=== PATIENT | male | born 1990 | race Caucasian/White ===

== ENCOUNTER 2016-11-07 20:43 | Emergency (ER) | payer SELFPAY ==
[~2016-11-07] VITALS: Ht 180.3 cm; Wt 75.0 kg
[2016-11-07 20:45] VITALS: TEMP 37.1; Ht 180.3 cm; Wt 75.0 kg
[2016-11-07] MEDS ORDERED: MoRPHine SULFATE 10 MG/ML CARP/VIAL IV STA (21:11)
[2016-11-07] MEDS ORDERED: ONDANSETRON 8 MG/54 ML D5W IV STA (21:11)
[2016-11-07] MEDS ORDERED: OPTIRAY 320 IV PRN (21:15)
[2016-11-07] MEDS ORDERED: MoRPHine SULFATE 2 MG/ML CARP ONE (21:16)
[2016-11-07] MEDS ORDERED: MoRPHine SULFATE 4 MG/ML 1 ML CARP\\VIAL ONE (21:16)
[2016-11-07 21:23] LABS: HEMATOCRIT 38.3 % (42-52); MEAN CELL VOLUME 88.2 fL (80-100); MEAN CORPUSCULAR HEMOGLOBIN 30.9 pg (25-34); PLATELET COUNT 314 K/uL (130-400); RED BLOOD COUNT 4.34 M/uL (4.7-6.1); WHITE BLOOD COUNT 19.16 K/uL (4.8-10.8)
--- NOTE | 2016-11-07 21:39 | EMERGENCY ROOM VISIT NOTE ---
History First contact with patient: 20:55 Chief Complaint: FALL Stated Complaint: BACK PAIN History of Present Illness The patient is a 26 year old male who presents to the Emergency Room with complains of a fall 3 hours ago. The patient was trying to climb up the deck of his house when he fell approximately 10+ feet to the ground and possibly falling over a rock. The patient denies any head trauma or loss of counciousness and states the brunt of the force was to his back and hip on the right side. The patient says he is currently having pain with movement of his right shoulder and right leg. He complains it is worse over his right shoulder blade and right hip. He denies any shortness of breath, vision changes, abdominal pain, headache, changes in vision, loss of sensation, loss of movement , or any other acute complaints. Review of Systems See HPI for pertinent positives and negatives. A total of ten systems were reviewed and were otherwise negative. Past Medical/Surgical History Medical Problems: (1) No chronic problems Social History Smoking Status: Current Every Day Smoker Current/Historical Medications Scheduled PRN Oxycodone/Acetaminophen 5MG/325MG (Percocet 5MG/325MG), 1 TAB PO Q6H PRN for Pain Allergies Coded Allergies: Milk (Verified Adverse Reaction, Mild, diarrhea, 07/13/15) Physical Exam Vital Signs Date Time Temp Pulse Resp B/P (MAP) Pulse Ox O2 Delivery O2 Flow Rate FiO2 11/07/16 23:46 75 20 122/58 98 Room Air 11/07/16 22:08 78 20 118/68 98 11/07/16 21:30 84 20 116/75 98 11/07/16 20:59 92 11/07/16 20:45 37.1 92 20 129/78 100 Room Air Physical Exam GENERAL: Awake, alert, in moderate distress HENT: Normocephalic, atraumatic. EYES: Normal conjunctiva. Sclera non-icteric. NECK: Supple. No nuchal rigidity. RESPIRATORY: Clear to auscultation. CARDIAC: Regular rate, normal rhythm. Extremities warm and well perfused. Pulses equal. ABDOMEN: Soft, non-distended. No tenderness to palpation. RECTAL: Deferred. MUSCULOSKELETAL: Tenderness to palpation over right scapula. Patient unable to abduct right arm beyond 90 degrees without tenderness. Also pain with adduction of the right arm lower than 90 degrees. Sensation over right arm and hand intact. Ulnar, Radial, and Median nerves of the right arm in tact. Pain over the right groin region and tenderness with palpation of the right hip over the anterior and posterior aspects. Tenderness with movement of the right hip and right leg. Weakness with flexion of the right hip. 5/5 Plantar flexion. Sensation over the right lower extremity intact. LOWER EXTREMITIES: Calves are equal size bilaterally and non-tender. No edema. No discoloration. NEURO: Normal sensorium. No sensory deficits noticed. SKIN: Abrasion over right scapula Medical Decision & Procedures Laboratory Results 11/07/16 21:06 Red Blood Count 4.34, Mean Corpuscular Volume 88.2, Mean Corpuscular Hemoglobin 30.9, Mean Corpuscular Hemoglobin Concent 35.0, Mean Platelet Volume 9.0, Neutrophils (%) (Auto) 75.3, Lymphocytes (%) (Auto) 15.4, Monocytes (%) (Auto) 8.1, Eosinophils (%) (Auto) 0.5, Basophils (%) (Auto) 0.2, Neutrophils # (Auto) 14.43, Lymphocytes # (Auto) 2.95, Monocytes # (Auto) 1.55, Eosinophils # (Auto) 0.09, Basophils # (Auto) 0.04 11/07/16 21:06 Test 11/07/16 21:06 White Blood Count 19.16 K/uL (4.8-10.8) Red Blood Count 4.34 M/uL (4.7-6.1) Hemoglobin 13.4 g/dL (14.0-18.0) Hematocrit 38.3 % (42-52) Mean Corpuscular Volume 88.2 fL (80-100) Mean Corpuscular Hemoglobin 30.9 pg (25-34) Mean Corpuscular Hemoglobin Concent 35.0 g/dl (32-36) Platelet Count 314 K/uL (130-400) Mean Platelet Volume 9.0 fL (7.4-10.4) Neutrophils (%) (Auto) 75.3 % Lymphocytes (%) (Auto) 15.4 % Monocytes (%) (Auto) 8.1 % Eosinophils (%) (Auto) 0.5 % Basophils (%) (Auto) 0.2 % Neutrophils # (Auto) 14.43 K/uL (1.4-6.5) Lymphocytes # (Auto) 2.95 K/uL (1.2-3.4) Monocytes # (Auto) 1.55 K/uL (0.11-0.59) Eosinophils # (Auto) 0.09 K/uL (0-0.5) Basophils # (Auto) 0.04 K/uL (0-0.2) RDW Standard Deviation 40.5 fL (36.4-46.3) RDW Coefficient of Variation 12.5 % (11.5-14.5) Immature Granulocyte % (Auto) 0.5 % Immature Granulocyte # (Auto) 0.10 K/uL (0.00-0.02) Anion Gap 9.0 mmol/L (3-11) Est Creatinine Clear Calc Drug Dose 116.7 ml/min Estimated GFR () 118.2 Estimated GFR (Non- 102.0 BUN/Creatinine Ratio 12.2 (10-20) Calcium Level 8.9 mg/dl (8.5-10.1) Chemistry Specimen Hemolysis Medications Administered Medications (Trade) Dose Ordered Sig/Emmanuelle Route Start Time Stop Time Status Last Admin Dose Admin Ondansetron HCl (Zofran 8mg Iv) 8 mg NOW STAT IV 11/07/16 21:11 11/07/16 21:13 DC 11/07/16 21:23 8 MG Morphine Sulfate (MoRPHine SULFATE INJ) 2 mg STK-MED ONCE .ROUTE 11/07/16 21:16 11/07/16 21:17 DC 11/07/16 21:23 2 MG Morphine Sulfate (MoRPHine SULFATE INJ) 4 mg STK-MED ONCE .ROUTE 11/07/16 21:16 11/07/16 21:17 DC 11/07/16 21:23 4 MG Oxycodone/ Acetaminophen (Percocet 5/ 325MG Home Pack) 1 homepack UD ONCE PO 11/08/16 00:00 11/08/16 00:01 DC 11/07/16 23:50 1 HOMEPACK Medical Decision Patient is a 26 year old male that presents 3 hours s/p fall - Patient appears to have injured his right scapula and right hip after fall - Patient denies any head trauma but due to the extent of the fall we will further investigate - CT Head, CT Chest, CT Abdomen and Pelvis - 8mg Morphine IV ordered Impression Primary Impression: Fall Additional Impression: Contusion of multiple sites After examining the patient, I placed orders and presented the patient to Dr. Tellez. I was then dismissed at the end of my shift. Departure Information Prescriptions Oxycodone/Acetaminophen 5MG/325MG (PERCOCET 5MG/325MG) Tab 1 TAB PO Q6H Y for Pain, #20 TAB Prov: Gary Tellez D.O. 11/07/16 Referrals No Doctor, Assigned (PCP) Patient Instructions My [facility] Problem Qualifiers Primary Impression: Fall Encounter type: initial encounter Qualified Codes: W19.XXXA - Unspecified fall, initial encounter
[2016-11-07 21:47] LABS: BUN/CREATININE RATIO 12.2 (10-20); CALCIUM 8.9 mg/dl (8.5-10.1); POTASSIUM 3.7 mmol/L (3.5-5.1)
[2016-11-07 22:10] LABS: BASO % 0.2 %; BASO ABS # 0.04 K/uL (0-0.2); COMPLETE YES; EOS % 0.5 %; IG% 0.5 %; LYMPH % 15.4 %; LYMPH ABS # 2.95 K/uL (1.2-3.4); MONO % 8.1 %; NEUT % 75.3 %
--- NOTE | 2016-11-07 22:10 | DIAGNOSTIC IMAGING REPORT ---
CT OF THE HEAD WITHOUT CONTRAST CLINICAL HISTORY: Fall. COMPARISON STUDY: No previous studies for comparison. CT DOSE: 1439.70 mGy.cm TECHNIQUE: Helical axial images of the head were obtained without IV contrast. Automated exposure control was utilized for the study. FINDINGS: No acute intracranial hemorrhage, midline shift or mass effect is present. The ventricular system is normal. The basilar cisterns are patent. There are no extra-axial collections. Stock-white differentiation is maintained. There is no calvarial fracture. Visualized portions of the sinuses and mastoid air cells are clear. IMPRESSION: 1. No acute intracranial findings. 2. No calvarial fracture. Electronically signed by: Marciano Newton M.D. 11/07/2016 10:09 PM Dictated Date/Time: 11/07/2016 10:06 PM
--- NOTE | 2016-11-07 22:25 | DIAGNOSTIC IMAGING REPORT ---
CT OF THE CHEST WITH IV CONTRAST CLINICAL HISTORY: Fall. Back pain. COMPARISON STUDY: No previous studies for comparison. TECHNIQUE: Following IV administration of 116 mL of Optiray-320, helical axial images of the chest were obtained. Sagittal and coronal reconstructions were viewed as well as maximal intensity projections on an independent 3-D workstation FINDINGS: There is no evidence of traumatic injury to the thoracic aorta. The size of the heart is normal. There is no pericardial effusion. There is no mediastinal hematoma. Central airways are patent. There are mild groundglass opacities within the superior segment of the right lower lobe. There is a trace right pneumothorax. Note is made of minimal gas tracking along the bronchovascular bundle within the right lower lobe. No acute rib fractures are identified. Note is made of an acute fracture of the inferior endplate of T3 with slight loss of vertebral body height. There is no retropulsion. No extension into the posterior elements is noted. There is no sternal fracture. Abdomen and pelvis will be reported separately. IMPRESSION: 1. Acute mild compression fracture of the inferior endplate of T3. Mild loss of vertebral body height without retropulsion. 2. Trace right pneumothorax. No acute rib fractures identified. 3. Mild multifocal groundglass opacities within the right lung which favor pulmonary contusions. Minimal gas tracking along a right lower lobe bronchovascular bundle could reflect a small pulmonary laceration. Electronically signed by: Marciano Newton M.D. 11/07/2016 10:23 PM Dictated Date/Time: 11/07/2016 10:09 PM
--- NOTE | 2016-11-07 22:33 | DIAGNOSTIC IMAGING REPORT ---
CT OF THE ABDOMEN AND PELVIS WITH CONTRAST CLINICAL HISTORY: Fall. Back pain. COMPARISON STUDY: None. TECHNIQUE: Following IV administration of 116 mL of Optiray-320, axial images of the abdomen and pelvis were obtained from the lung bases to the proximal femurs. Images were reviewed in the axial, sagittal, and coronal planes. IV contrast was administered without complication. FINDINGS: There is no hemoperitoneum or pneumoperitoneum. There is no evidence of traumatic injury to the liver, spleen, adrenal glands, kidneys or pancreas. Caliber and wall thickness of small and large bowel are normal. There is no acute pelvic fracture. There is a suspected acute nondisplaced fracture of the right transverse process of L2 shown on axial image 174 of 496. A trace right pneumothorax is better depicted on the chest CT. IMPRESSION: 1. No evidence of traumatic injury to the solid abdominal viscera. 2. Trace right pneumothorax better depicted on the chest CT. 3. Suspected acute nondisplaced fracture of the right transverse process of L2. Electronically signed by: Marciano Newton M.D. 11/07/2016 10:31 PM Dictated Date/Time: 11/07/2016 10:25 PM
[2016-11-07] MEDS ORDERED: OXYC-57 PO (23:12)
--- NOTE | 2016-11-07 23:14 | EMERGENCY ROOM VISIT NOTE ---
History Report prepared by Juan Francisco: Analia Hoffman Under the Supervision of: Dr. Gary Tellez D.O. First contact with patient: 20:55 Chief Complaint: FALL Stated Complaint: BACK PAIN History of Present Illness The patient is a 26 year old male who presents to the Emergency Room with complaints of an episode of a fall beginning just [employer]. The patient states that he fell off of a second story deck onto the ground on a rock. He complains of rib pain that is worsened with breath, hip pain, right lower shoulder blade pain , and pain radiating to the pelvis. He denies any numbness, tingling, head trauma, and loss of consciousness. The patient's brother states that the patient has no mental changes. 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 He denies any tingling, head trauma. Review of Systems See HPI for pertinent positives & negatives. A total of 10 systems reviewed and were otherwise negative. Past Medical & Surgical Medical Problems: (1) No chronic problems Family History No pertinent family history stated. Social History Smoking Status: Current Every Day Smoker Marital Status: single Occupation Status: employed Current/Historical Medications Scheduled PRN Oxycodone/Acetaminophen 5MG/325MG (Percocet 5MG/325MG), 1 TAB PO Q6H PRN for Pain Allergies Coded Allergies: Milk (Verified Adverse Reaction, Mild, diarrhea, 07/13/15) Physical Exam Vital Signs Date Time Temp Pulse Resp B/P (MAP) Pulse Ox O2 Delivery O2 Flow Rate FiO2 11/07/16 23:46 75 20 122/58 98 Room Air 11/07/16 22:08 78 20 118/68 98 11/07/16 21:30 84 20 116/75 98 11/07/16 20:59 92 11/07/16 20:45 37.1 92 20 129/78 100 Room Air Physical Exam CONSTITUTIONAL/VITAL SIGNS: Reviewed / noted above. GENERAL: Non-toxic in appearance. INTEGUMENTARY: Warm, dry, and [place]. HEAD: Normocephalic. EYES: without scleral icterus or trauma. ENT/OROPHARYNX: clear and moist. LYMPHADENOPATHY/NECK: Is supple without lymphadenopathy or meningismus. RESPIRATORY: Lungs clear and equal. CARDIOVASCULAR: Regular rate and rhythm. GI/ABDOMEN: Soft and nontender. No organomegaly or pulsatile mass. No rebound or guarding. Normal bowel sounds. EXTREMITIES: Warm and well perfused. BACK: mild discomfort with palpation of the lumbar region as well as the upper thoracic area NEUROLOGICAL: Intact without focal deficits. PSYCHIATRIC: normal affect. MUSCULOSKELETAL: Normally developed with good muscle tone. Medical Decision & Procedures ER Provider Diagnostic Interpretation: Radiology results as stated below per my review and radiologist interpretation: CT OF THE ABDOMEN AND PELVIS WITH CONTRAST FINDINGS: There is no hemoperitoneum or pneumoperitoneum. There is no evidence of traumatic injury to the liver, spleen, adrenal glands, kidneys or pancreas. Caliber and wall thickness of small and large bowel are normal. There is no acute pelvic fracture. There is a suspected acute nondisplaced fracture of the right transverse process of L2 shown on axial image 174 of 496. A trace right pneumothorax is better depicted on the chest CT. IMPRESSION: 1. No evidence of traumatic injury to the solid abdominal viscera. 2. Trace right pneumothorax better depicted on the chest CT. 3. Suspected acute nondisplaced fracture of the right transverse process of L2. Electronically signed by: Marciano Newton M.D. 11/07/2016 10:31 PM Dictated Date/Time: 11/07/2016 10:[address] OF THE CHEST WITH IV CONTRAST FINDINGS: There is no evidence of traumatic injury to the thoracic aorta. The size of the heart is normal. There is no pericardial effusion. There is no mediastinal hematoma. Central airways are patent. There are mild groundglass opacities within the superior segment of the right lower lobe. There is a trace right pneumothorax. Note is made of minimal gas tracking along the bronchovascular bundle within the right lower lobe. No acute rib fractures are identified. Note is made of an acute fracture of the inferior endplate of T3 with slight loss of vertebral body height. There is no retropulsion. No extension into the posterior elements is noted. There is no sternal fracture. Abdomen and pelvis will be reported separately. IMPRESSION: 1. Acute mild compression fracture of the inferior endplate of T3. Mild loss of vertebral body height without retropulsion. 2. Trace right pneumothorax. No acute rib fractures identified. 3. Mild multifocal groundglass opacities within the right lung which favor pulmonary contusions. Minimal gas tracking along a right lower lobe bronchovascular bundle could reflect a small pulmonary laceration. Electronically signed by: Marciano Newton M.D. 11/07/2016 10:23 PM Dictated Date/Time: 11/07/2016 10:[address] OF THE HEAD WITHOUT CONTRAST FINDINGS: No acute intracranial hemorrhage, midline shift or mass effect is present. The ventricular system is normal. The basilar cisterns are patent. There are no extra-axial collections. Stock-white differentiation is maintained. There is no calvarial fracture. Visualized portions of the sinuses and mastoid air cells are clear. IMPRESSION: 1. No acute intracranial findings. 2. No calvarial fracture. Electronically signed by: Marciano Newton M.D. 11/07/2016 10:09 PM Laboratory Results 11/07/16 21:06 Red Blood Count 4.34, Mean Corpuscular Volume 88.2, Mean Corpuscular Hemoglobin 30.9, Mean Corpuscular Hemoglobin Concent 35.0, Mean Platelet Volume 9.0, Neutrophils (%) (Auto) 75.3, Lymphocytes (%) (Auto) 15.4, Monocytes (%) (Auto) 8.1, Eosinophils (%) (Auto) 0.5, Basophils (%) (Auto) 0.2, Neutrophils # (Auto) 14.43, Lymphocytes # (Auto) 2.95, Monocytes # (Auto) 1.55, Eosinophils # (Auto) 0.09, Basophils # (Auto) 0.04 11/07/16 21:06 Test 11/07/16 21:06 White Blood Count 19.16 K/uL (4.8-10.8) Red Blood Count 4.34 M/uL (4.7-6.1) Hemoglobin 13.4 g/dL (14.0-18.0) Hematocrit 38.3 % (42-52) Mean Corpuscular Volume 88.2 fL (80-100) Mean Corpuscular Hemoglobin 30.9 pg (25-34) Mean Corpuscular Hemoglobin Concent 35.0 g/dl (32-36) Platelet Count 314 K/uL (130-400) Mean Platelet Volume 9.0 fL (7.4-10.4) Neutrophils (%) (Auto) 75.3 % Lymphocytes (%) (Auto) 15.4 % Monocytes (%) (Auto) 8.1 % Eosinophils (%) (Auto) 0.5 % Basophils (%) (Auto) 0.2 % Neutrophils # (Auto) 14.43 K/uL (1.4-6.5) Lymphocytes # (Auto) 2.95 K/uL (1.2-3.4) Monocytes # (Auto) 1.55 K/uL (0.11-0.59) Eosinophils # (Auto) 0.09 K/uL (0-0.5) Basophils # (Auto) 0.04 K/uL (0-0.2) RDW Standard Deviation 40.5 fL (36.4-46.3) RDW Coefficient of Variation 12.5 % (11.5-14.5) Immature Granulocyte % (Auto) 0.5 % Immature Granulocyte # (Auto) 0.10 K/uL (0.00-0.02) Anion Gap 9.0 mmol/L (3-11) Est Creatinine Clear Calc Drug Dose 116.7 ml/min Estimated GFR () 118.2 Estimated GFR (Non- 102.0 BUN/Creatinine Ratio 12.2 (10-20) Calcium Level 8.9 mg/dl (8.5-10.1) Chemistry Specimen Hemolysis Laboratory results as stated above per my review. Medications Administered Medications (Trade) Dose Ordered Sig/Emmanuelle Route Start Time Stop Time Status Last Admin Dose Admin Ondansetron HCl (Zofran 8mg Iv) 8 mg NOW STAT IV 11/07/16 21:11 11/07/16 21:13 DC 11/07/16 21:23 8 MG Morphine Sulfate (MoRPHine SULFATE INJ) 2 mg STK-MED ONCE .ROUTE 11/07/16 21:16 11/07/16 21:17 DC 11/07/16 21:23 2 MG Morphine Sulfate (MoRPHine SULFATE INJ) 4 mg STK-MED ONCE .ROUTE 11/07/16 21:16 11/07/16 21:17 DC 11/07/16 21:23 4 MG Oxycodone/ Acetaminophen (Percocet 5/ 325MG Home Pack) 1 homepack UD ONCE PO 11/08/16 00:00 11/08/16 00:01 DC 11/07/16 23:50 1 HOMEPACK ECG Indication: other (trauma) Rate (beats per minute): 78 Rhythm: normal sinus Findings: no acute ischemic change, no ectopy ED Course 2054: Previous medical records were reviewed. The patient was evaluated in room A12B. A complete history and physical examination was performed. 2110: Zofran 8mg IV, Morphine Sulfate 6mg IV. 2115: Morphine Sulfate 4mg IV, Morphine Sulfate 2mg IV. 2320: On reevaluation, the patient is doing well. I discussed the results and findings with the patient. She verbalized agreement of the treatment plan. The patient was discharged home. Medical Decision Differential includes close head injury, intracranial bleed, facial trauma, cervical spine trauma, chest and thoracic trauma, abdominal and intra-abdominal trauma, spine neurologic trauma, extremity trauma. Medication Reconciliation: I attest that I have personally reviewed the patient' s current medication list. Blood pressure Screening: Patient was found to have normal blood pressure on screening and does not require follow-up. This is a 26-year-old male who fell approximately 10 feet onto his back onto the ground when attempting to climb up to his balcony from outside. He denies loss of consciousness or striking his head. He states that he landed on a rock on the ground that was sticking up from the ground. He complains primarily of some back pain. Denies any shortness of breath. He has not had a recent illness. He was seen with the resident. His vital signs are stable. He is not hypoxic. He is in minimal discomfort on exam. The movement worsens his discomfort. He has some discomfort in the upper and lower back regions. A CT scan of his chest revealed a mild right pulmonary contusion and a trace pneumothorax. There may also be a small pulmonary laceration. T3 mild compression fracture is noted. CT scan of the abdomen and pelvis did not show an intra-abdominal traumatic process. There is a fracture of the right transverse process of L2. CT scan of the brain did not show acute process. His white cell count is 19,000 likely related to his recent trauma. Pupils normal. The patient was given IV morphine for pain. On reassessment, he is more comfortable. He'll be given some time off of work. He'll be discharged on Percocet. He was advised to return for any shortness of breath, fevers or worsening of symptoms. Outpatient follow-up with PCP was also recommended. Impression Primary Impression: Compression fracture Additional Impressions: Lumbar transverse process fracture Pneumothorax on right Right pulmonary contusion Scribe Attestation The scribe's documentation has been prepared under my direction and personally reviewed by me in its entirety. I confirm that the note above accurately reflects all work, treatment, procedures, and medical decision making performed by me. Departure Information Dispostion Home / Self-Care Prescriptions Oxycodone/Acetaminophen 5MG/325MG (PERCOCET 5MG/325MG) Tab 1 TAB PO Q6H Y for Pain, #20 TAB Prov: Gary Tellez D.O. 11/07/16 Referrals No Doctor, Assigned (PCP) Forms HOME CARE DOCUMENTATION FORM, IMPORTANT VISIT INFORMATION Patient Instructions My [facility] [employer] Additional Instructions Percocet as prescribed. No driving within 6 hours of use. Do not take additional Tylenol while taking Percocet. Activity as tolerated. Return to emergency department for recheck if you develop sudden shortness of breath, fevers, increasing pain, other concerns or worsening. Avoid heavy lifting for at least 1 week. Follow-up with your doctor for recheck in 3-7 days. Problem Qualifiers
[2016-11-07 23:46] VITALS: BP 122/58; PULSE 75; O2SAT 98
[2016-11-08] MEDS ORDERED: PERCOCET HOME PACK PO ONE
== END 2016-11-08 00:09 | disposition home or self-care (01) ==
LOC: C.EDB 20:43 → C.EDA 11-08 00:09
DX: S22.030A Wedge compression fracture of third thoracic vertebra, initial encounter for closed fracture (principal); S32.029A Unspecified fracture of second lumbar vertebra, initial encounter for closed fracture; S27.0XXA Traumatic pneumothorax, initial encounter; S27.321A Contusion of lung, unilateral, initial encounter; W17.89XA Other fall from one level to another, initial encounter; Y92.008 Other place in unspecified non-institutional (private) residence as the place of occurrence of the external cause; F17.210 Nicotine dependence, cigarettes, uncomplicated

== ENCOUNTER 2017-12-21 18:17 | Inpatient (IN) | payer SELFPAY ==
[~2017-12-21] VITALS: Ht 180.3 cm; Wt 72.3 kg
[2017-12-21] MEDS ORDERED: SODIUM CHLORIDE 0.9% 1000ML 1,000 ML IV STA (18:48)
[2017-12-21] MEDS ORDERED: MoRPHine SULFATE 4 MG/ML 1 ML CARP\\VIAL IV STA ×2 (18:48→20:45)
[2017-12-21] MEDS ORDERED: ONDANSETRON INJ 2 MG/ML 2 ML VIAL IV STA (18:48)
--- NOTE | 2017-12-21 18:56 | EMERGENCY ROOM VISIT NOTE ---
History Report prepared by Juan Francisco: Chinyere Roy Under the Supervision of: Dr. Pete Palmer M.D. First contact with patient: 18:44 Chief Complaint: ABDOMINAL PAIN Stated Complaint: PAIN RIGHT ON [place] AND BACK Nursing Triage Summary: patient reports right sided abdominal pain radiating into back History of Present Illness The patient is a 27 year old male who presents to the Emergency Room with complaints of constant abdominal pain that began yesterday. The patient thought he hurt his back at work because he also has back pain. The patient states that he spent the whole day today "rolling around in pain". The patient states that he also has genital pain but it is not as severe as his abdominal pain. He denies any pain in his testicles. The patient also denies any numbness or tingling in his legs. He states that he was unable to eat today and that he feels dehydrated. He states that he also had diarrhea the other day and had 6 bowel movements that day, but has not had any today. The patient did not take any medication for his pain. He states that he previously hurt his back. The patient also has no history of abdominal surgery. The patient also states that he does regularly consume alcohol about 3 to 4 times per week but has not had any alcohol for the past few days. Source of History: patient Onset: yesterday Position: abdomen Timing: constant Associated Symptoms: + back pain, No numbness (in legs) Note: additional symptoms: genital pain Review of Systems See HPI for pertinent positives and negatives. A total of ten systems were reviewed and were otherwise negative. Past Medical & Surgical Medical Problems: (1) Heroin abuse (2) No chronic problems Social History Smoking Status: Current Every Day Smoker Alcohol Use: occasionally Marital Status: single Housing Status: lives with family Occupation Status: employed Current/Historical Medications No Active Prescriptions or Reported Meds Allergies Coded Allergies: Milk (Verified Adverse Reaction, Mild, diarrhea, 07/13/15) Physical Exam Vital Signs Date Time Temp Pulse Resp B/P (MAP) Pulse Ox O2 Delivery O2 Flow Rate FiO2 12/21/17 20:35 65 12/21/17 20:31 70 18 152/80 100 Room Air 12/21/17 18:39 36.7 90 18 145/88 99 Physical Exam GENERAL: Awake, alert, Lying on stretcher. Mild discomfort. Grabbing stomach. HENT: Normocephalic, atraumatic. Oropharynx unremarkable. EYES: Normal conjunctiva. Sclera non-icteric. NECK: Supple. No nuchal rigidity. RESPIRATORY: Clear to auscultation. No wheezes. Normal respiratory effort. CARDIAC: Normal rate. Normal rhythm. Extremities warm and well perfused. GI: Soft. Right-sided tenderness with guarding. No masses. RECTAL: Deferred. MUSCULOSKELETAL: Atraumatic. Chest examination reveals no tenderness. There is no CVA tenderness to palpation. LOWER EXTREMITIES: Calves are equal size bilaterally and non-tender. No edema NEURO: Normal sensorium. No sensory or motor deficits noted. No facial droop. SKIN: Warm and dry. No rash or jaundice noted. Scattered upper extremity track white noted. Medical Decision & Procedures ER Provider Diagnostic Interpretation: Radiology results as stated below per my review and radiologist interpretation: CT SCAN OF THE ABDOMEN AND PELVIS WITH IV CONTRAST CLINICAL HISTORY: Right lower quadrant abdominal pain. Nausea. COMPARISON STUDY: Abdominal CT dated 11/07/2016. TECHNIQUE: Following the IV administration of 93 cc of Optiray 320, CT scan of the abdomen and pelvis is performed from the lung bases to the proximal femora. Images are reviewed in the axial, sagittal, and coronal planes. IV contrast was administered without complication. A dose lowering technique was utilized adhering to the principles of ALARA. The examination is degraded by motion artifact. CT DOSE: 499.35 mGycm FINDINGS: Lung bases: The heart is normal in size and without pericardial effusion. The lung bases are clear. There is a small hiatal hernia. Liver: The contrast-enhanced liver is normal in size, contour, and attenuation. There is no intrahepatic biliary ductal dilatation. The hepatic veins and portal veins are patent. An 11 mm low-attenuation lesion in the right lobe of liver seen on #56 is incomplete characterized but likely represents a benign hemangioma. Gallbladder: Unremarkable. Spleen: Normal in size and attenuation. Pancreas: Unremarkable. Adrenal glands: Unremarkable. Kidneys: The right kidney appears mildly enlarged and edematous. There is an 8 mm obstructing calculus in the distal right ureter seen on image #353 at the level of S2. This causes moderate right hydroureteronephrosis. There is associated urothelial thickening within the right ureter. The right kidney enhances heterogeneously, and there is associated right-sided perinephric stranding and trace fluid. There are at least 4 additional nonobstructing right renal calculi measuring up to 4 mm. No left renal calculi are clearly identified on this contrast-enhanced examination. The left kidney enhances homogeneously and there is no left-sided hydronephrosis. Abdominal vasculature: The abdominal aorta is normal in course and caliber. Bowel: There is moderate to severe fecal retention noted in the right colon. No bowel obstruction is seen. The appendix is not clearly identified. Peritoneum: There is no intraperitoneal free air or abdominal ascites. Lymphadenopathy: None. Pelvic viscera: The bladder, prostate, and seminal vesicles are normal as visualized. Skeletal structures: No lytic or blastic lesions are seen. IMPRESSION: 1. There is an 8 mm obstructing calculus in the distal right ureter. This causes moderate right hydroureteronephrosis. 2. Additional nonobstructing regular calculi are identified. No left renal calculi are clearly seen. 3. There is heterogeneously diminished enhancement of the right kidney, likely related to obstruction/hydronephrosis. Correlate clinically and with urinalysis for evidence of superimposed infection. 4. Moderate to severe fecal retention is noted in the right colon. No bowel obstruction is identified. Electronically signed by: Kunal Brian M.D. 12/21/2017 8:52 PM Dictated Date/Time: 12/21/2017 8:43 PM Laboratory Results 12/21/17 19:30 Red Blood Count 4.76, Mean Corpuscular Volume 89.7, Mean Corpuscular Hemoglobin 30.9, Mean Corpuscular Hemoglobin Concent 34.4, Mean Platelet Volume 9.9, Neutrophils (%) (Auto) 74.0, Lymphocytes (%) (Auto) 13.9, Monocytes (%) (Auto) 11.5, Eosinophils (%) (Auto) 0.1, Basophils (%) (Auto) 0.2, Neutrophils # (Auto ) 13.18, Lymphocytes # (Auto) 2.47, Monocytes # (Auto) 2.04, Eosinophils # (Auto ) 0.02, Basophils # (Auto) 0.04 12/21/17 19:30 Test 12/21/17 19:30 12/21/17 19:32 White Blood Count 17.81 K/uL (4.8-10.8) Red Blood Count 4.76 M/uL (4.7-6.1) Hemoglobin 14.7 g/dL (14.0-18.0) Hematocrit 42.7 % (42-52) Mean Corpuscular Volume 89.7 fL (80-100) Mean Corpuscular Hemoglobin 30.9 pg (25-34) Mean Corpuscular Hemoglobin Concent 34.4 g/dl (32-36) Platelet Count 274 K/uL (130-400) Mean Platelet Volume 9.9 fL (7.4-10.4) Neutrophils (%) (Auto) 74.0 % Lymphocytes (%) (Auto) 13.9 % Monocytes (%) (Auto) 11.5 % Eosinophils (%) (Auto) 0.1 % Basophils (%) (Auto) 0.2 % Neutrophils # (Auto) 13.18 K/uL (1.4-6.5) Lymphocytes # (Auto) 2.47 K/uL (1.2-3.4) Monocytes # (Auto) 2.04 K/uL (0.11-0.59) Eosinophils # (Auto) 0.02 K/uL (0-0.5) Basophils # (Auto) 0.04 K/uL (0-0.2) RDW Standard Deviation 44.5 fL (36.4-46.3) RDW Coefficient of Variation 13.5 % (11.5-14.5) Immature Granulocyte % (Auto) 0.3 % Immature Granulocyte # (Auto) 0.06 K/uL (0.00-0.02) Est Creatinine Clear Calc Drug Dose 84.9 ml/min Estimated GFR () 84.7 Estimated GFR (Non- 73.1 BUN/Creatinine Ratio 14.6 (10-20) Calcium Level 10.3 mg/dl (8.5-10.1) Total Bilirubin 0.6 mg/dl (0.2-1) Direct Bilirubin 0.1 mg/dl (0-0.2) Aspartate Amino Transf (AST/SGOT) 48 U/L (15-37) Alanine Aminotransferase (ALT/SGPT) 145 U/L (12-78) Alkaline Phosphatase 69 U/L (45-117) Total Protein 8.4 gm/dl (6.4-8.2) Albumin 4.4 gm/dl (3.4-5.0) Lipase 205 U/L (73-393) Bedside Hemoglobin 14.6 g/dl (14.0-18.0) Bedside Hematocrit 43 % (42-52) Bedside Sodium 141 mEq/L (135-144) Bedside Potassium 4.6 mEq/L (3.3-5.0) Bedside Chloride 106 mEq/L (101-112) Bedside Total CO2 26 mEq/l (24-31) Anion Gap 15.0 mmol/L (16-25) Bedside Blood Urea Nitrogen 19 mg/dl (7-18) Bedside Creatinine 1.2 mg/dl (0.6-1.3) Bedside Glucose (other) 94 mg/dl (70-99) Bedside Ionized Calcium (Liza) 1.21 mmol/l (1.12-1.32) Laboratory results reviewed by me Medications Administered Medications (Trade) Dose Ordered Sig/Emmanuelle Route Start Time Stop Time Status Last Admin Dose Admin Sodium Chloride 1,000 ml @ 999 mls/hr Q1H1M STAT IV 12/21/17 18:48 12/21/17 19:48 DC 12/21/17 20:02 999 MLS/HR Ondansetron HCl (Zofran Inj) 4 mg NOW STAT IV 12/21/17 18:48 12/21/17 18:51 DC 12/21/17 20:03 4 MG Morphine Sulfate (MoRPHine SULFATE INJ) 4 mg NOW STAT IV 12/21/17 18:48 12/21/17 18:51 DC 12/21/17 20:03 4 MG Sodium Chloride 1,000 ml @ 999 mls/hr Q1H1M ONCE IV 12/21/17 20:32 12/21/17 21:32 12/21/17 20:42 999 MLS/HR Morphine Sulfate (MoRPHine SULFATE INJ) 4 mg NOW STAT IV 12/21/17 20:45 12/21/17 20:46 DC 12/21/17 20:54 4 MG Ketorolac Tromethamine (Toradol Inj) 15 mg NOW STAT IV 12/21/17 20:46 12/21/17 20:47 DC 12/21/17 20:54 15 MG ED Course 5: The patient was evaluated in room A11A. A complete history and physical exam was performed. 1847: Ordered Morphine Sulfate 4 mg IV, Zofran Inj 4 mg, Sodium Chloride 1000 ml @ 999 mls/hr. 2045: Additional morphine 4mg and IVF given. Toradol given. 2103: Flowmax ordered. Discussed findings with patient. Still awaiting Urine sample. 2112: Mild improvement in pain. Plan for admission for pain control after discussion with patient. Anny contacted. 2122: Anny called back and will eval for admission Medical Decision Differential diagnosis: Etiologies such as appendicitis, diverticulitis, PUD, biliary pathology, UTI, pancreatitis, obstruction, mesenteric ischemia, aortic pathology, infections, inflammatory bowel disease, renal colic, as well as others were entertained. Patient presents complaining of back and right-sided abdominal pain starting yesterday and worsening throughout the day today. No vomiting decreased oral intake. No history of this. No history of trauma. On Monday for his back a little bit lifting but now pain is consistent. 3 times a week alcohol use but denies drug use. Evidence of multiple track white on his person and I do have some concern this could be opioid withdrawal symptomatologies. Does have some very tenderness in the right side of the abdomen as such CT imaging was completed to exclude intra-abdominal process such as perforation or appendicitis. Laboratory studies were completed. Evidence of some leukocytosis that appears chronic compared to last year. Creatinine 1.3 slightly higher than baseline around approximately 1. Likely minimally dehydrated. Given IV fluids here. No evidence of acute hepatitis or pancreatitis. No significant genitourinary tenderness or pain and doubt UTI or torsion. Feeling somewhat improved after hydration but still describing a pressure sensation. Evidence of a 8 mm right sided nephrolithiasis with moderate hydronephrosis. Moderate retained stool. Given Flomax. Given dose of Toradol in addition to morphine. Difficulty with pain control, refractory pain. Still awaiting UA to exclude infection but not acutely septic and lower suspicion in this patient for infection. Given his significant symptoms feel that admission for pain control and possible urological consultation in the morning is reasonable. Anny contacted for admission. Medication Reconcilliation Current Medication List: was personally reviewed by me Blood Pressure Screening Patient's blood pressure: Elevated blood pressure Blood pressure disposition: Elevated BP felt to be situational Impression Primary Impression: Kidney stone on right side Additional Impression: Dehydration Scribe Attestation The scribe's documentation has been prepared under my direction and personally reviewed by me in its entirety. I confirm that the note above accurately reflects all work, treatment, procedures, and medical decision making performed by me. Departure Information Dispostion Being Evaluated By Hospitalist Prescriptions No Active Prescriptions or Reported Meds Referrals No Doctor, Assigned (PCP) Patient Instructions [facility] Problem Qualifiers
[2017-12-21] MEDS ORDERED: OPTIRAY 320 IV PRN (19:00)
[2017-12-21 19:40] LABS: BASO % 0.2 %; BASO ABS # 0.04 K/uL (0-0.2); EOS % 0.1 %; EOS ABS # 0.02 K/uL (0-0.5); HEMATOCRIT 42.7 % (42-52); HEMOGLOBIN 14.7 g/dL (14.0-18.0); IG# 0.06 K/uL (0.00-0.02); LYMPH % 13.9 %; LYMPH ABS # 2.47 K/uL (1.2-3.4); MEAN CELL VOLUME 89.7 fL (80-100); MEAN CORPUSCULAR HEMOGLOBIN 30.9 pg (25-34); MEAN CORPUSCULAR HGB CONC 34.4 g/dl (32-36); MEAN PLATELET VOLUME 9.9 fL (7.4-10.4); MONO % 11.5 %; MONO ABS # 2.04 K/uL (0.11-0.59); NEUT ABS # 13.18 K/uL (1.4-6.5); PLATELET COUNT 274 K/uL (130-400); RED CELL DISTRIBUTION WIDTH CV 13.5 % (11.5-14.5); RED CELL DISTRIBUTION WIDTH SD 44.5 fL (36.4-46.3); WHITE BLOOD COUNT 17.81 K/uL (4.8-10.8)
[2017-12-21 19:47] LABS: ISTAT CREATININE 1.2 mg/dl (0.6-1.3); ISTAT IONIZED CALCIUM 1.21 mmol/l (1.12-1.32); ISTAT POTASSIUM 4.6 mEq/L (3.3-5.0)
[2017-12-21 20:04] LABS: ALBUMIN 4.4 gm/dl (3.4-5.0); CALCIUM 10.3 mg/dl (8.5-10.1); CREATININE 1.31 mg/dl (0.60-1.40); POTASSIUM 4.4 mmol/L (3.5-5.1); TOTAL PROTEIN 8.4 gm/dl (6.4-8.2)
[2017-12-21] MEDS ORDERED: SODIUM CHLORIDE 0.9% 1000ML 1,000 ML IV ONE (20:32)
[2017-12-21] MEDS ORDERED: KETOROLAC TROMETHAMINE 30 MG/ML VIAL IV STA (20:46)
--- NOTE | 2017-12-21 20:53 | DIAGNOSTIC IMAGING REPORT ---
CT SCAN OF THE ABDOMEN AND PELVIS WITH IV CONTRAST CLINICAL HISTORY: Right lower quadrant abdominal pain. Nausea. COMPARISON STUDY: Abdominal CT dated 11/07/2016. TECHNIQUE: Following the IV administration of 93 cc of Optiray 320, CT scan of the abdomen and pelvis is performed from the lung bases to the proximal femora. Images are reviewed in the axial, sagittal, and coronal planes. IV contrast was administered without complication. A dose lowering technique was utilized adhering to the principles of ALARA. The examination is degraded by motion artifact. CT DOSE: 499.35 mGycm FINDINGS: Lung bases: The heart is normal in size and without pericardial effusion. The lung bases are clear. There is a small hiatal hernia. Liver: The contrast-enhanced liver is normal in size, contour, and attenuation. There is no intrahepatic biliary ductal dilatation. The hepatic veins and portal veins are patent. An 11 mm low-attenuation lesion in the right lobe of liver seen on #56 is incomplete characterized but likely represents a benign hemangioma. Gallbladder: Unremarkable. Spleen: Normal in size and attenuation. Pancreas: Unremarkable. Adrenal glands: Unremarkable. Kidneys: The right kidney appears mildly enlarged and edematous. There is an 8 mm obstructing calculus in the distal right ureter seen on image #353 at the level of S2. This causes moderate right hydroureteronephrosis. There is associated urothelial thickening within the right ureter. The right kidney enhances heterogeneously, and there is associated right-sided perinephric stranding and trace fluid. There are at least 4 additional nonobstructing right renal calculi measuring up to 4 mm. No left renal calculi are clearly identified on this contrast-enhanced examination. The left kidney enhances homogeneously and there is no left-sided hydronephrosis. Abdominal vasculature: The abdominal aorta is normal in course and caliber. Bowel: There is moderate to severe fecal retention noted in the right colon. No bowel obstruction is seen. The appendix is not clearly identified. Peritoneum: There is no intraperitoneal free air or abdominal ascites. Lymphadenopathy: None. Pelvic viscera: The bladder, prostate, and seminal vesicles are normal as visualized. Skeletal structures: No lytic or blastic lesions are seen. IMPRESSION: 1. There is an 8 mm obstructing calculus in the distal right ureter. This causes moderate right hydroureteronephrosis. 2. Additional nonobstructing regular calculi are identified. No left renal calculi are clearly seen. 3. There is heterogeneously diminished enhancement of the right kidney, likely related to obstruction/hydronephrosis. Correlate clinically and with urinalysis for evidence of superimposed infection. 4. Moderate to severe fecal retention is noted in the right colon. No bowel obstruction is identified. Electronically signed by: Kunal Brian M.D. 12/21/2017 8:52 PM Dictated Date/Time: 12/21/2017 8:43 PM
[2017-12-21] MEDS ORDERED: TAMSULOSIN HCL 0.4 MG CAP PO ONE (21:00)
[2017-12-21] MEDS ORDERED: TRAMADOL HCL 50 MG TAB PO PRN (21:45)
[2017-12-21] MEDS ORDERED: LORAZEPAM 2 MG/ML 1 ML VIAL IV PRN (21:45)
[2017-12-21] MEDS ORDERED: PROCHLORPERAZINE INJ 5 MG in SYRINGE 4 ML IV PRN (21:45)
[2017-12-21] MEDS ORDERED: DOCUSATE SODIUM 100 MG CAP PO ONE (22:04)
[2017-12-21] MEDS ORDERED: ACETAMINOPHEN 325 MG TAB PO PRN ×2 (22:15)
[2017-12-21] MEDS ORDERED: LORAZEPAM INJ 0.5 MG in SYRINGE 0.75 ML IV PRN (22:30)
[2017-12-21 23:00] VITALS: BP 145/84; PULSE 67; TEMP 36.7; O2SAT 100; Ht 180.3 cm; Wt 72.3 kg
--- NOTE | 2017-12-21 23:10 | HISTORY & PHYSICAL EXAMINATION ---
DATE OF ADMISSION: 12/21/2017 PRIMARY CARE PHYSICIAN: None. CHIEF COMPLAINT: Abdominal pain, right. HISTORY OF PRESENT ILLNESS: History obtained from patient and records. Medical history significant for ongoing tobacco use, past heroin abuse. Two days history of sharp right-sided abdominal pain going to flank and testicles. No hematuria, no fever, no chills. Some nausea. No bowel movement for a day. Initially attributed pain to lifting from work. Patient seen at Emergency Room. MEDICAL HISTORY: As above. hx traumatic pneumothorax. SURGERIES: None. HOME MEDICATIONS: None. ALLERGIES: MILK. FAMILY HISTORY: Multiple sclerosis. PERSONAL AND SOCIAL HISTORY: One pack daily. Occasional EtOH intake. 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 REVIEW OF SYSTEMS: As per HPI. All 10 systems reviewed. All others negative. PHYSICAL EXAMINATION VITAL SIGNS: Blood pressure was noted to be 145/80, pulse rate 80, RR 14, temperature 37, sats 96% on room air. GENERAL: Uncomfortable, slightly anxious, no respiratory distress, obese. SKIN: Normal color, warm. HEENT: alopecia. Prien palpebral conjunctivae. No ptosis noted. Dry mucosa. NECK: Short neck, supple. CHEST: Clear to auscultation. No tenderness. HEART: Regular rate and rhythm, no murmur. ABDOMEN: Tenderness on the RLQ, some distention. EXTREMITIES: No LE edema/tenderness noticed. No gross deformities. NEUROLOGIC: Coherent, no gross focality. LABORATORY DATA: Hemoglobin was noted to be 14.7, hematocrit 42.7, white blood cell count 17.81, platelets 274. Sodium 139, potassium 4.4, chloride CO2 of 25, BUN 19, creatinine 1.31, glucose was noted to be 89, calcium was noted to be at 10.3. UA occult blood, hyaline casts, wbc, 1-5, epithelial cells cells. CT abdomen and pelvis showed 8 mm obstructive calculus in distal right ureter causing moderate right hydronephrosis, [id number] fecal retention, right colon. ASSESSMENT: 1. Abdominal pain multifactorial : Right renal colic. No sepsis. Fecal retention 2. Situational hypertension 3. ongoing tobacco abuse. PLAN: [facility] Flomax trial Urology consult RE renal colic laxative nicotine patch. DVT prophylaxis, SCDs. Full code. MTDD
[2017-12-21] MEDS ORDERED: IV FLUIDS COMPLETED PRN (23:30)
[2017-12-22] VITALS (8 sets, daily range): BP systolic 108–144; BP diastolic 70–80; PULSE 56–107; TEMP 36.4–36.8; O2SAT 98–100
[2017-12-22] MEDS: MoRPHine SULFATE 2 MG/ML CARP IV PRN ×2 (02:35→07:39)
[2017-12-22 06:17] LABS: ALBUMIN 3.4 gm/dl (3.4-5.0); CALCIUM 8.3 mg/dl (8.5-10.1); CREATININE 1.23 mg/dl (0.60-1.40); POTASSIUM 3.7 mmol/L (3.5-5.1); TOTAL PROTEIN 6.9 gm/dl (6.4-8.2)
[2017-12-22] MEDS ORDERED: SODIUM CHLORIDE 0.9% 1000ML 1,000 ML IV ONE (07:00)
[2017-12-22] MEDS ORDERED: D5W AND NSS 1,000 ML IV SCH ×2 (07:00)
[2017-12-22 07:19] LABS: BASO % 0.1 %; BASO ABS # 0.02 K/uL (0-0.2); EOS % 0.5 %; EOS ABS # 0.08 K/uL (0-0.5); IG# 0.05 K/uL (0.00-0.02); LYMPH % 13.7 %; LYMPH ABS # 2.08 K/uL (1.2-3.4); MEAN CELL VOLUME 88.9 fL (80-100); MEAN CORPUSCULAR HEMOGLOBIN 31.1 pg (25-34); MEAN PLATELET VOLUME 9.7 fL (7.4-10.4); MONO % 11.5 %; MONO ABS # 1.75 K/uL (0.11-0.59); NEUT % 73.9 %; NEUT ABS # 11.19 K/uL (1.4-6.5); PLATELET COUNT 213 K/uL (130-400); RED CELL DISTRIBUTION WIDTH CV 13.2 % (11.5-14.5); RED CELL DISTRIBUTION WIDTH SD 43.2 fL (36.4-46.3); WHITE BLOOD COUNT 15.17 K/uL (4.8-10.8)
[2017-12-22] MEDS ORDERED: DOCUSATE SODIUM 100 MG CAP PO SCH (09:00)
[2017-12-22] MEDS ORDERED: NICOTINE 21 MG/24 HR TDSY TD SCH (09:00)
[2017-12-22] MEDS ORDERED: TAMSULOSIN HCL 0.4 MG CAP PO SCH (09:00)
[2017-12-22] MEDS ORDERED: D5W AND LACTATED RINGERS 1,000 ML IV SCH (09:00)
[2017-12-22] MEDS ORDERED: LIDOCAINE HCL 2% 2 ML VIAL (20MG/ML) ONE (12:05)
[2017-12-22] MEDS ORDERED: MIDAZOLAM HCL 1 MG/ML 2ML VIAL ONE (12:05)
[2017-12-22] MEDS ORDERED: ONDANSETRON INJ 2 MG/ML 2 ML VIAL ONE (12:05)
[2017-12-22] MEDS ORDERED: FENTANYL CITRATE INJ 50 MCG/1 ML 2 ML VIAL ONE ×2 (12:05→13:05)
[2017-12-22] MEDS ORDERED: DEXAMETHASONE SOD INJ 4 MG/ML VIAL ONE ×2 (12:05→13:22)
[2017-12-22] MEDS ORDERED: PROPOFOL IV EMULSION 10 MG/ML 20 ML VIAL ONE ×2 (12:05→13:28)
[2017-12-22] MEDS ORDERED: CEFAZOLIN SOD 2000MG/15 ML IV PUSH ONE (12:06)
--- NOTE | 2017-12-22 12:16 | Urology Consultation ---
History General Date of Service: Dec 22, 2017. Chief Complaint: right ureteral stone Primary Care Physician: No Doctor, Assigned Pt seen a urologist before?: No History of Present Illness I am asked by Dr Daniels to evaluate and treat patient for right ureteral stone. He presented with one whole day of severe abdominal pain. Pain is associated with nausea. He has not had stones in past. His ct shows a right mid ureter 8mm obstructing stone with severe hydroureteronephrosis. His pain is bad. Imaging Imaging: CT Laboratory Results Past 24 Hours Test 12/21/17 19:30 12/21/17 19:32 12/21/17 21:36 12/22/17 05:25 Range/Units White Blood Count 17.81 4.8-10.8 K/uL Red Blood Count 4.76 4.7-6.1 M/uL Hemoglobin 14.7 14.0-18.0 g/dL Hematocrit 42.7 42-52 % Mean Corpuscular Volume 89.7 80-100 fL Mean Corpuscular Hemoglobin 30.9 25-34 pg Mean Corpuscular Hemoglobin Concent 34.4 32-36 g/dl Platelet Count 274 130-400 K/uL Mean Platelet Volume 9.9 7.4-10.4 fL Neutrophils (%) (Auto) 74.0 % Lymphocytes (%) (Auto) 13.9 % Monocytes (%) (Auto) 11.5 % Eosinophils (%) (Auto) 0.1 % Basophils (%) (Auto) 0.2 % Neutrophils # (Auto) 13.18 1.4-6.5 K/uL Lymphocytes # (Auto) 2.47 1.2-3.4 K/uL Monocytes # (Auto) 2.04 0.11-0.59 K/uL Eosinophils # (Auto) 0.02 0-0.5 K/uL Basophils # (Auto) 0.04 0-0.2 K/uL RDW Standard Deviation 44.5 36.4-46.3 fL RDW Coefficient of Variation 13.5 11.5-14.5 % Immature Granulocyte % (Auto) 0.3 % Immature Granulocyte # (Auto) 0.06 0.00-0.02 K/uL Sodium Level 139 138 136-145 mmol/L Potassium Level 4.4 3.7 3.5-5.1 mmol/L Chloride Level 107 108 98-107 mmol/L Carbon Dioxide Level 25 18 21-32 mmol/L Anion Gap 8.0 15.0 12.0 3-11 mmol/L Blood Urea Nitrogen 19 14 7-18 mg/dl Creatinine 1.31 1.23 0.60-1.40 mg/dl Est Creatinine Clear Calc Drug Dose 84.9 90.6 ml/min Estimated GFR () 84.7 91.4 Estimated GFR (Non- 73.1 78.8 BUN/Creatinine Ratio 14.6 11.5 10-20 Random Glucose 89 81 70-99 mg/dl Calcium Level 10.3 8.3 8.5-10.1 mg/dl Magnesium Level 2.3 1.8-2.4 mg/dl Total Bilirubin 0.6 0.6 0.2-1 mg/dl Direct Bilirubin 0.1 0-0.2 mg/dl Aspartate Amino Transf (AST/SGOT) 48 40 15-37 U/L Alanine Aminotransferase (ALT/SGPT) 145 112 12-78 U/L Alkaline Phosphatase 69 58 45-117 U/L Total Protein 8.4 6.9 6.4-8.2 gm/dl Albumin 4.4 3.4 3.4-5.0 gm/dl Lipase 205 73-393 U/L Bedside Hemoglobin 14.6 14.0-18.0 g/dl Bedside Hematocrit 43 42-52 % Bedside Sodium 141 135-144 mEq/L Bedside Potassium 4.6 3.3-5.0 mEq/L Bedside Chloride 106 101-112 mEq/L Bedside Total CO2 26 24-31 mEq/l Bedside Blood Urea Nitrogen 19 7-18 mg/dl Bedside Creatinine 1.2 0.6-1.3 mg/dl Bedside Glucose (other) 94 70-99 mg/dl Bedside Ionized Calcium (Liza) 1.21 1.12-1.32 mmol/l Urine Color YELLOW Urine Appearance TURBID CLEAR Urine pH 7.5 4.5-7.5 Urine Specific [place] 1.044 1.000-1.030 Urine Protein NEG NEG Urine Glucose (UA) NEG NEG Urine Ketones NEG NEG Urine Occult Blood 2+ NEG Urine Nitrite NEG NEG Urine Bilirubin NEG NEG Urine Urobilinogen NEG NEG Urine Leukocyte Esterase NEG NEG Urine WBC (Auto) 1-5 0-5 /hpf Urine RBC (Auto) >30 0-4 /hpf Urine Hyaline Casts (Auto) 1-5 0-5 /lpf Urine Epithelial Cells (Auto) 10-20 0-5 /lpf Urine Bacteria (Auto) NEG NEG Globulin 3.5 2.5-4.0 gm/dl Albumin/Globulin Ratio 1.0 0.9-2 Chemistry Specimen Hemolysis Test 12/22/17 06:54 Range/Units White Blood Count 15.17 4.8-10.8 K/uL Red Blood Count 4.50 4.7-6.1 M/uL Hemoglobin 14.0 14.0-18.0 g/dL Hematocrit 40.0 42-52 % Mean Corpuscular Volume 88.9 80-100 fL Mean Corpuscular Hemoglobin 31.1 25-34 pg Mean Corpuscular Hemoglobin Concent 35.0 32-36 g/dl Platelet Count 213 130-400 K/uL Mean Platelet Volume 9.7 7.4-10.4 fL Neutrophils (%) (Auto) 73.9 % Lymphocytes (%) (Auto) 13.7 % Monocytes (%) (Auto) 11.5 % Eosinophils (%) (Auto) 0.5 % Basophils (%) (Auto) 0.1 % Neutrophils # (Auto) 11.19 1.4-6.5 K/uL Lymphocytes # (Auto) 2.08 1.2-3.4 K/uL Monocytes # (Auto) 1.75 0.11-0.59 K/uL Eosinophils # (Auto) 0.08 0-0.5 K/uL Basophils # (Auto) 0.02 0-0.2 K/uL RDW Standard Deviation 43.2 36.4-46.3 fL RDW Coefficient of Variation 13.2 11.5-14.5 % Immature Granulocyte % (Auto) 0.3 % Immature Granulocyte # (Auto) 0.05 0.00-0.02 K/uL Microbiology Results 12/21/17 Urine Culture, Received Pending Labs were reviewed and are within normal limits unless listed below. Labs are available in the chart and at [facility] Problem List Medical Problems: (1) Abscess of arm Status: Acute (2) Compression fracture Status: Acute (3) Contusion of multiple sites Status: Acute (4) Dehydration Status: Acute (5) Dental caries Status: Acute (6) Fall Status: Acute (7) Heroin overdose Status: Acute (8) Kidney stone on right side Status: Acute (9) Lumbar transverse process fracture Status: Acute (10) Pain, dental Status: Acute (11) Pneumothorax on right Status: Acute (12) Respiratory depression Status: Acute (13) Right pulmonary contusion Status: Acute Past History drug addiction (history of , now in remission ) Past Surgical History: no surgical history Family History no one has stones Social History Hx Tobacco Use In Past Year?: Yes Smoking: greater than 1 pack/day Alcohol: socially Marital status: single Housing status: lives alone Occupation status: employed Allergies Coded Allergies: Milk (Verified Adverse Reaction, Mild, diarrhea, 07/13/15) Medications Home Medications: Home Meds and Scripts Medications Dose Route/Sig Max Daily Dose Days Date Category No Active Prescriptions or Reported Medications Rx Inpatient Medications: Current Inpatient Medications Medications (Trade) Dose Ordered Sig/Emmanuelle Route Start Time Stop Time Status Last Admin Dose Admin Ioversol (Optiray 320) 100 ml UD PRN IV 12/21/17 19:00 12/25/17 18:59 Prochlorperazine Edisylate 5 mg/ Syringe 5 ml @ 5 mls/min Q6H PRN IV 12/21/17 21:45 01/20/18 21:44 Tramadol HCl (Ultram Tab) 25 MG for pain rat... Q6H PRN PO 12/21/17 21:45 01/20/18 21:44 Lorazepam (Ativan Inj) 0.5 mg Q4H PRN IV 12/21/17 21:45 01/20/18 21:44 Morphine Sulfate (MoRPHine SULFATE INJ) 4 mg Q4H PRN IV 12/21/17 21:45 01/04/18 21:44 12/22/17 07:39 4 MG Tamsulosin HCl (Flomax Cap) 0.4 mg QAM PO 12/22/17 09:00 01/21/18 08:59 12/22/17 07:50 0.4 MG Nicotine (Nicoderm Cq 21MG Patch) 1 patch QAM TD 12/22/17 09:00 01/21/18 08:59 Miscellaneous (Remove Nicoderm Patch) 1 ea HS N/A 12/22/17 21:00 01/21/18 20:59 Docusate Sodium (coLACE CAP) 100 mg DAILY PO 12/22/17 09:00 01/21/18 08:59 Acetaminophen (Tylenol Tab) 325 mg Q6H PRN PO 12/21/17 22:15 01/20/18 22:14 Lorazepam 0.5 mg/ Syringe 1 ml @ 1 mls/min Q4H PRN IV 12/21/17 22:30 01/20/18 22:29 Miscellaneous (Iv Fluids Completed) 1 ea PRN PRN N/A 12/21/17 23:30 12/21/18 23:29 Dextrose/Lactated Ringer's 1,000 ml @ 150 mls/hr Q6H40M IV 12/22/17 09:00 01/21/18 08:59 12/22/17 08:59 150 MLS/HR Review of Systems Review of Systems Constitutional: + frequent headaches, No fever, No chills Neurological: No dizzy, No passing out, No seizures Endocrine: No tired/sluggish Gastrointestinal: + abdominal pain, + indigestion, + nausea, No diarrhea Cardiovascular: No chest pain, No swelling ankles/feet Respiratory: No shortness of breath, No chronic cough Male : + frequent urination, + kidney stones, No leaking urine, No infections , No nocturia more than once/night Physical Exam Vital Signs: Vital Signs Past 12 Hours Date Time Temp Pulse Resp B/P (MAP) Pulse Ox O2 Delivery O2 Flow Rate FiO2 12/22/17 08:05 99 Room Air 12/22/17 07:50 36.6 56 16 144/80 (101) 99 Room Air 12/22/17 07:45 Room Air Physical Exam: General Appearance: WD/WN, no apparent distress, + thin Eyes: bilateral eyes normal inspection ENT: hearing grossly normal Neck: supple, no adenopathy, no JVD, trachea midline Respiratory/Chest: no respiratory distress, no accessory muscle use Cardiovascular: regular rate, rhythm Gastrointestinal: Abdomen: normal abdomen Bladder: normal bladder Renal: pertinent finding (there is right CVA ) Hernia: absent hernia Liver: normal liver Extremities: non-tender, normal inspection, no pedal edema, no calf tenderness , normal capillary refill Neurologic/Psychiatric: alert, normal mood/affect, oriented x 3 Skin: normal color, warm/dry, no rash Lymphatic: no adenopathy Assessment & Plan Assessment & Plan Imaging: CT right obstructing 8mm mid ureteral stone plan right ureteroscopy laser lithotripsy basket stone extraction possible stent I described surgery and risks and benefits other option is further observation to try to pass stone. 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
[2017-12-22] MEDS ORDERED: KETAMINE HCL INJ 50 MG/ML 10 ML VIAL ONE (12:47)
[2017-12-22] MEDS ORDERED: EpHEDrine SULFATE INJ 50 MG/ML AMP ONE (13:11)
[2017-12-22] MEDS ORDERED: KETOROLAC TROMETHAMINE 30 MG/ML VIAL ONE (13:31)
--- NOTE | 2017-12-22 13:41 | [facility] Operative Report ---
Operative Report Operative Date Dec 22, 2017. Pre-Operative Diagnosis Right Ureteral Stone with Hydronephrosis Post-Operative Diagnosis Right Ureteral Stone with Hydronephrosis Procedure(s) Performed Cystoscopy, Right Ureteroscopy, Laser Lithotripsy, Basket Stone Extraction; Stent Insertion Surgeon Dr Garsia Lay Ups Assembler Surgeon(s) None Estimated Blood Loss 1cc Findings radio-lucent right distal ureteral stone Fluids 1400mL Specimens A: Right Ureteral Stones for Chemical Analysis Drains 6 fr 22 centiemter double J stent on a string Anesthesia Type General Complication(s) none Disposition yes Indications 8mm obstructing right distal ureteral stone. Description of Procedure Patient was given general LMA anesthesia and placed in lithotomy position. His genitals were prepped and draped in sterile fashion. Time out held with team. I placed a 21 fr rigid cystoscope to bladder. The urethra is unremarkable. The prostate is small and short. The UOs are normal on left with some blood oozing from right UO. I placed a road runner wire up right ureter with some mild resistance in the distal ureter about 250-30mm above the UO. I then passed a 5 fr catheter and changed wire to stiff wire. I used dual lumen to calibrate the right UO. I placed a second wire. I placed a short semirigid ureteroscope over the second wire into the distal ureter. His ureter is very tight just below the stone and I could not quite reach stone. Fluoro shows his IV dye still trapped in the right collecting system to the level of the stone. I removed ureteroscope and recalibrated distal ureter with the dual lumen and the reintroduced the semirigid scope over the second wire again. I was just able to barely reach the stone. I carefully lasered stone into about 6 pieces and used a triangular 1.9 fr basket to remove the stone pieces from ureter and dropped then in the bladder. I then reintroduced the cystoscope and rinsed the ureteral stone pieces out. I then placed a 22 centimeter 6 Fr double J stent easily with the string exiting the urethral meatus. There is brisk efflux after placement. I left bladder empty and concluded case. He transferred to recovery under my escort, in stable condition. Plan: Home today or tomorrow depending on post-op pain. Pyridium for dysuria x 3 days flomax daily oral pain meds as needed remove stent at home Monday morning. 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 Any exceptions are noted below.
[2017-12-22] MEDS ORDERED: PHENAZOPYRIDINE HCL 200 MG TAB PO PRN (13:45)
[2017-12-22] MEDS ORDERED: NITROFURANTOIN MONOHYDRATE 100 MG CAP PO SCH (14:00)
--- NOTE | 2017-12-22 14:13 | Anesthesiology Progress Note ---
Anesthesia Post Op Note Date & Time Dec 22, 2017 at 14:13 Vital Signs Pain Intensity: 0 Vital Signs Past 12 Hours Date Time Temp Pulse Resp B/P (MAP) Pulse Ox O2 Delivery O2 Flow Rate FiO2 12/22/17 14:05 70 16 116/65 99 Room Air 12/22/17 13:55 91 16 125/66 100 Oxymask 10 12/22/17 13:45 67 16 124/68 100 Oxymask 10 12/22/17 13:39 36.4 88 16 124/64 100 Oxymask 10 12/22/17 08:05 99 Room Air 12/22/17 07:50 36.6 56 16 144/80 (101) 99 Room Air 12/22/17 07:45 Room Air Notes Mental Status: alert / awake / arousable, participated in evaluation Pt Amnestic to Procedure: Yes Nausea / Vomiting: adequately controlled Pain: adequately controlled Airway Patency, RR, SpO2: stable & adequate BP & HR: stable & adequate Hydration State: stable & adequate Anesthetic Complications: no major complications apparent
[2017-12-22] MEDS ORDERED: EpHEDrine SULFATE INJ 50 MG/ML AMP IV PRN (14:15)
[2017-12-22] MEDS ORDERED: ATROPINE SULFATE 0.1 MG/ML 5ML SYR IV PRN (14:15)
--- NOTE | 2017-12-22 14:42 | DIAGNOSTIC IMAGING REPORT ---
KUB CLINICAL HISTORY: 27 years-old Male presenting with RT SIDE LASER/LITHO AND STENT. TECHNIQUE: 5 fluoroscopic image(s) recorded as part of an intraoperative procedure. COMPARISON: CT from 12/21/2017. FINDINGS/IMPRESSION: Opacification of the right renal collecting system, which is dilated. A right ureteral stent was placed. Please see surgical report for further details. Dose area product (mGy.m^2): [id number]. Fluoroscopy time: 30.2 seconds. Number or time of fluoroscopic spot images: 0. Electronically signed by: Tyler Monk M.D. 12/22/2017 2:41 PM Dictated Date/Time: 12/22/2017 2:39 PM
--- NOTE | 2017-12-22 16:57 | Progress Note ---
Medicine Progress Note Date & Time of Visit: Dec 22, 2017 at 11:05 . Subjective Admitted last evening with right ureteral calculus with associated hydronephrosis. Feels a little better today, but has not yet passed stone. Seen by Urology. Scheduled for cystoscopy later today. No fever. Less right flank pain. Urine dark. No dysuria. No nausea, vomiting, diarrhea. . Objective Last 8 Hrs Date Time Temp Pulse Resp B/P (MAP) Pulse Ox O2 Delivery O2 Flow Rate FiO2 12/22/17 16:33 36.6 107 16 128/72 (90) 99 Room Air 12/22/17 15:40 36.7 106 16 108/70 (83) 98 Room Air 12/22/17 14:58 36.8 105 18 117/70 (86) 98 12/22/17 14:33 36.4 83 16 129/75 (93) 100 Room Air 12/22/17 14:30 99 Room Air 12/22/17 14:15 36.4 77 16 127/75 99 Room Air 12/22/17 14:05 70 16 116/65 99 Room Air 12/22/17 13:55 91 16 125/66 100 Oxymask 10 12/22/17 13:45 67 16 124/68 100 Oxymask 10 12/22/17 13:39 36.4 88 16 124/64 100 Oxymask 10 Physical Exam: General- no distress Lungs- clear to auscultation; no respiratory distress Cardiovascular- RRR; no gallop; no JVD; no pretibial edema Abdomen- + bowel sounds, soft, nontender Back- right CVAT Extremities- no cyanosis; no calf tenderness Neuro- alert, oriented Skin- warm & dry . Laboratory Results: Last 24 Hours Test 12/21/17 19:30 12/21/17 19:32 12/21/17 21:36 12/22/17 05:25 White Blood Count 17.81 K/uL Red Blood Count 4.76 M/uL Hemoglobin 14.7 g/dL Hematocrit 42.7 % Mean Corpuscular Volume 89.7 fL Mean Corpuscular Hemoglobin 30.9 pg Mean Corpuscular Hemoglobin Concent 34.4 g/dl Platelet Count 274 K/uL Mean Platelet Volume 9.9 fL Neutrophils (%) (Auto) 74.0 % Lymphocytes (%) (Auto) 13.9 % Monocytes (%) (Auto) 11.5 % Eosinophils (%) (Auto) 0.1 % Basophils (%) (Auto) 0.2 % Neutrophils # (Auto) 13.18 K/uL Lymphocytes # (Auto) 2.47 K/uL Monocytes # (Auto) 2.04 K/uL Eosinophils # (Auto) 0.02 K/uL Basophils # (Auto) 0.04 K/uL RDW Standard Deviation 44.5 fL RDW Coefficient of Variation 13.5 % Immature Granulocyte % (Auto) 0.3 % Immature Granulocyte # (Auto) 0.06 K/uL Sodium Level 139 mmol/L 138 mmol/L Potassium Level 4.4 mmol/L 3.7 mmol/L Chloride Level 107 mmol/L 108 mmol/L Carbon Dioxide Level 25 mmol/L 18 mmol/L Anion Gap 8.0 mmol/L 15.0 mmol/L 12.0 mmol/L Blood Urea Nitrogen 19 mg/dl 14 mg/dl Creatinine 1.31 mg/dl 1.23 mg/dl Est Creatinine Clear Calc Drug Dose 84.9 ml/min 90.6 ml/min Estimated GFR () 84.7 91.4 Estimated GFR (Non- 73.1 78.8 BUN/Creatinine Ratio 14.6 11.5 Random Glucose 89 mg/dl 81 mg/dl Calcium Level 10.3 mg/dl 8.3 mg/dl Magnesium Level 2.3 mg/dl Total Bilirubin 0.6 mg/dl 0.6 mg/dl Direct Bilirubin 0.1 mg/dl Aspartate Amino Transf (AST/SGOT) 48 U/L 40 U/L Alanine Aminotransferase (ALT/SGPT) 145 U/L 112 U/L Alkaline Phosphatase 69 U/L 58 U/L Total Protein 8.4 gm/dl 6.9 gm/dl Albumin 4.4 gm/dl 3.4 gm/dl Lipase 205 U/L Bedside Hemoglobin 14.6 g/dl Bedside Hematocrit 43 % Bedside Sodium 141 mEq/L Bedside Potassium 4.6 mEq/L Bedside Chloride 106 mEq/L Bedside Total CO2 26 mEq/l Bedside Blood Urea Nitrogen 19 mg/dl Bedside Creatinine 1.2 mg/dl Bedside Glucose (other) 94 mg/dl Bedside Ionized Calcium (Liza) 1.21 mmol/l Urine Color YELLOW Urine Appearance TURBID Urine pH 7.5 Urine Specific [place] 1.044 Urine Protein NEG Urine Glucose (UA) NEG Urine Ketones NEG Urine Occult Blood 2+ Urine Nitrite NEG Urine Bilirubin NEG Urine Urobilinogen NEG Urine Leukocyte Esterase NEG Urine WBC (Auto) 1-5 /hpf Urine RBC (Auto) >30 /hpf Urine Hyaline Casts (Auto) 1-5 /lpf Urine Epithelial Cells (Auto) 10-20 /lpf Urine Bacteria (Auto) NEG Globulin 3.5 gm/dl Albumin/Globulin Ratio 1.0 Chemistry Specimen Hemolysis Test 12/22/17 06:54 12/22/17 13:22 White Blood Count 15.17 K/uL Red Blood Count 4.50 M/uL Hemoglobin 14.0 g/dL Hematocrit 40.0 % Mean Corpuscular Volume 88.9 fL Mean Corpuscular Hemoglobin 31.1 pg Mean Corpuscular Hemoglobin Concent 35.0 g/dl Platelet Count 213 K/uL Mean Platelet Volume 9.7 fL Neutrophils (%) (Auto) 73.9 % Lymphocytes (%) (Auto) 13.7 % Monocytes (%) (Auto) 11.5 % Eosinophils (%) (Auto) 0.5 % Basophils (%) (Auto) 0.1 % Neutrophils # (Auto) 11.19 K/uL Lymphocytes # (Auto) 2.08 K/uL Monocytes # (Auto) 1.75 K/uL Eosinophils # (Auto) 0.08 K/uL Basophils # (Auto) 0.02 K/uL RDW Standard Deviation 43.2 fL RDW Coefficient of Variation 13.2 % Immature Granulocyte % (Auto) 0.3 % Immature Granulocyte # (Auto) 0.05 K/uL Date/Time Source Procedure Growth Status 12/21/17 21:36 Urine , Clean Catch Urine Culture - Preliminary PIN-POINT GROWTH PRESENT, REINCUBATING. Resulted Assessment & Plan RIGHT URETERAL CALCULUS + HYDRONEPHROSIS CT demonstrated 8 mm obstructing calculus in right distal ureter with associated right hydronephrosis. UA showed many RBC's, only 1-5 WBC's, no bacteria. Seen in consultation by Urology. Cystoscopy scheduled for later today. Continue IV fluids, analgesics, tamsulosin. VTE PROPHYLAXIS Very low risk per IMPROVE Risk Assessment Model. Prophylaxis not indicated. DISPOSITION Expected discharge to home. . Current Inpatient Medications: Current Inpatient Medications Medications (Trade) Dose Ordered Sig/Emmanuelle Route Start Time Stop Time Status Last Admin Dose Admin Prochlorperazine Edisylate 5 mg/ Syringe 5 ml @ 5 mls/min Q6H PRN IV 12/21/17 21:45 01/20/18 21:44 Tramadol HCl (Ultram Tab) 25 MG for pain rat... Q6H PRN PO 12/21/17 21:45 01/20/18 21:44 Lorazepam (Ativan Inj) 0.5 mg Q4H PRN IV 12/21/17 21:45 01/20/18 21:44 Morphine Sulfate (MoRPHine SULFATE INJ) 4 mg Q4H PRN IV 12/21/17 21:45 01/04/18 21:44 12/22/17 07:39 4 MG Tamsulosin HCl (Flomax Cap) 0.4 mg QAM PO 12/22/17 09:00 01/21/18 08:59 12/22/17 07:50 0.4 MG Nicotine (Nicoderm Cq 21MG Patch) 1 patch QAM TD 12/22/17 09:00 01/21/18 08:59 Miscellaneous (Remove Nicoderm Patch) 1 ea HS N/A 12/22/17 21:00 01/21/18 20:59 Docusate Sodium (coLACE CAP) 100 mg DAILY PO 12/22/17 09:00 01/21/18 08:59 Acetaminophen (Tylenol Tab) 325 mg Q6H PRN PO 12/21/17 22:15 01/20/18 22:14 Lorazepam 0.5 mg/ Syringe 1 ml @ 1 mls/min Q4H PRN IV 12/21/17 22:30 01/20/18 22:29 Miscellaneous (Iv Fluids Completed) 1 ea PRN PRN N/A 12/21/17 23:30 12/21/18 23:29 Dextrose/Lactated Ringer's 1,000 ml @ 150 mls/hr Q6H40M IV 12/22/17 09:00 01/21/18 08:59 12/22/17 08:59 150 MLS/HR Phenazopyridine HCl (Pyridium Tab) 200 mg TID PRN PO 12/22/17 13:45 01/21/18 13:44 Nitrofurantoin Macrocrystals (Macrobid Cap) 100 mg BID PO 12/22/17 14:00 12/24/17 13:59 Ephedrine Sulfate (EpHEDrine SULFATE INJ) 5 mg Q5M PRN IV 12/22/17 14:15 12/22/17 19:15 Atropine Sulfate (Atropine Sulfate 0.1mg/ml Inj) 0.5 mg Q1M PRN IV 12/22/17 14:15 12/22/17 19:15
[2017-12-22] MEDS ORDERED: PHEN-876 PO (17:02)
[2017-12-22] MEDS ORDERED: ACET-1257 PO (17:02)
[2017-12-22] MEDS ORDERED: TAMS0.4C38 PO (17:02)
[2017-12-22] MEDS ORDERED: NITR-5 PO (17:02)
[2017-12-22] MEDS ORDERED: MTR800 PO (17:17)
--- NOTE | 2017-12-22 17:21 | Discharge Instructions ---
Discharge Instructions Date of Service Dec 22, 2017. Admission Reason for Admission: kidney stone . Discharge Discharge Diagnosis / Problem: kidney stone Discharge Goals Goal(s): Decrease discomfort, Improve disease control Activity Recommendations Activity Limitations: resume your previous activity . Instructions / Follow-Up Instructions / Follow-Up AP[facility]MENTS[facility] go to the office Monday morning (12/25) around 8:30 AM to have stent removed. OTHER INSTRUCTIONS: Drink plenty of fluids to keep kidney stones from recurring. Seek medical attention if you have: * temperature above 101 * chest pain or trouble breathing * abdominal pain, nausea, vomiting * diarrhea, dark stools or bloody stools * any unanswered questions or concerns Call 911 if symptoms are severe. Call if you have any questions or problems. My cell # is [phone]. You can also reach a Anny hospitalist on duty at [facility] 24 hours a day by calling [phone]. Please take good care of yourself. Mesfin Womack . Current Hospital Diet Patient's current hospital diet: Regular Diet Discharge Diet Recommended Diet: Regular Diet Procedures Procedures Performed: Cystoscopy, Right Ureteroscopy, Laser Lithotripsy, Basket Stone Extraction; Stent Insertion Pending Studies Studies pending at discharge: yes List of pending studies: kidney stone analysis Medical Emergencies . Who to Call and When: Medical Emergencies: If at any time you feel your situation is an emergency, please call 911 immediately. . Non-Emergent Contact Non-Emergency issues call your: Primary Care Provider, Hospital Doctor, Urologist . . "Provider Documentation" section prepared by Mesfin Womack. .
--- NOTE | 2017-12-22 17:36 | Discharge Summary ---
Discharge Summary Date of Service Dec 22, 2017. Discharge Summary Admission Date: Dec 21, 2017 at 22:02 Discharge Date: Dec 22, 2017 Discharge Disposition: Home Principal Diagnosis: right obstructing ureteral calculus with hydronephrosis . Procedures: CT abdomen and pelvis IV fluids IV meds cystoscopy with laser lithotripsy and right ureteral stent placement . Consultations: Urology with Dr. Garsia . Pending Studies/Follow-Up: renal calculus analysis . Medication Reconciliation New Medications: Acetaminophen (Tylenol Extra Strength) 500 Mg Tab 2 TAB PO Q8 PRN for Pain, #30 TAB No prescription necessary. Ibuprofen (Ibuprofen) 800 Mg Tab 800 MG PO Q6 PRN for Pain, #20 TAB Take with food. Nitrofurantoin Monohyd Macrocr (Macrobid) 100 Mg Cap 100 MG PO BID, #6 CAP Phenazopyridine HCl (Pyridium) 200 Mg Tab 200 MG PO BID, #6 TAB Tamsulosin Hcl (Flomax) 0.4 Mg Cap 0.4 MG PO HS, #7 CAP Admission Information HPI (per Admitting provider): History obtained from patient and records. Medical history significant for ongoing tobacco use, past heroin abuse. Two days history of sharp right-sided abdominal pain going to flank and testicles. No hematuria, no fever, no chills. Some nausea. No bowel movement for a day. Initially attributed pain to lifting from work. Patient seen at Emergency Room. . Physical Exam (per Admitting): VITAL SIGNS: Blood pressure was noted to be 145/80, pulse rate 80, RR 14, temperature 37, sats 96% on room air. GENERAL: Uncomfortable, slightly anxious, no respiratory distress, obese. SKIN: Normal color, warm. HEENT: alopecia. [place] palpebral conjunctivae. No ptosis noted. Dry mucosa. NECK: Short neck, supple. CHEST: Clear to auscultation. No tenderness. HEART: Regular rate and rhythm, no murmur. ABDOMEN: Tenderness on the RLQ, some distention. EXTREMITIES: No LE edema/tenderness noticed. No gross deformities. NEUROLOGIC: Coherent, no gross focality. . Hospital Course RIGHT URETERAL CALCULUS + HYDRONEPHROSIS CT demonstrated 8 mm obstructing calculus in right distal ureter with associated right hydronephrosis. UA showed many RBC's, only 1-5 WBC's, no bacteria. Seen in consultation by Urology. Received IV fluids, analgesics, tamsulosin. Cysto with laser lithotripsy and right ureteral stent placement performed. Stent to be removed in 3 days. Discharged on: nitrofurantoin phenazopyridine tamsulosin OTC analgesics VTE PROPHYLAXIS Very low risk per IMPROVE Risk Assessment Model. Prophylaxis not indicated. DISPOSITION Discharge to home. Urology follow-up with Dr. Garsia. . Discharge Instructions Discharge Instructions Date of Service Dec 22, 2017. Admission Reason for Admission: kidney stone . Discharge Discharge Diagnosis / Problem: kidney stone Discharge Goals Goal(s): Decrease discomfort, Improve disease control Activity Recommendations Activity Limitations: resume your previous activity . Instructions / Follow-Up Instructions / Follow-Up APPOINTMENTS: UROLOGY Dr. Lucina Garsia [facility] Please go to the office Monday (12/25) around 8:30 AM to have stent removed. OTHER INSTRUCTIONS: Drink plenty of fluids to keep kidney stones from recurring. Seek medical attention if you have: * temperature above 101 * chest pain or trouble breathing * abdominal pain, nausea, vomiting * diarrhea, dark stools or bloody stools * any unanswered questions or concerns Call 911 if symptoms are severe. Call if you have any questions or problems. My cell # is [phone]. You can also reach a Anny hospitalist on duty at [facility] 24 hours a day by calling [phone]. Please take good care of yourself. Mesfin Womack . Current Hospital Diet Patient's current hospital diet: Regular Diet Discharge Diet Recommended Diet: Regular Diet Procedures Procedures Performed: Cystoscopy, Right Ureteroscopy, Laser Lithotripsy, Basket Stone Extraction; Stent Insertion Pending Studies Studies pending at discharge: yes List of pending studies: kidney stone analysis Medical Emergencies . Who to Call and When: Medical Emergencies: If at any time you feel your situation is an emergency, please call 911 immediately. . Non-Emergent Contact Non-Emergency issues call your: Primary Care Provider, Hospital Doctor, Urologist . . "Provider Documentation" section prepared by Mesfin Womack. . . Additional Copies To Lucina Garsia .MD
[2017-12-23] MEDS ORDERED: CEFAZOLIN SOD 2000MG/15 ML IV PUSH IV ONE (06:00)
== END 2017-12-22 18:20 | disposition home or self-care (01) | DRG 669 ==
LOC: C.EDB 18:19 → C.MSW 22:02 → ENRESERV 22:18
PROVIDERS: ADMIT Internal Medicine; ATTEND Hospitalist
PROC: 0T768DZ Dilation of Right Ureter with Intraluminal Device, Via Natural or Artificial Opening Endoscopic (ICD-10-PCS; principal; 2017-12-21)
PROC: 0TC68ZZ Extirpation of Matter from Right Ureter, Via Natural or Artificial Opening Endoscopic (ICD-10-PCS; principal; 2017-12-21)
DX: N13.2 Hydronephrosis with renal and ureteral calculous obstruction (principal); F17.200 Nicotine dependence, unspecified, uncomplicated; F11.11 Opioid abuse, in remission; I10 Essential (primary) hypertension